=== PATIENT | female | born 1980 ===

== ENCOUNTER 2023-11-03 08:29 | Day surgery (SDC) | payer OTHER ==
[~2023-11-03 08:29] MED LIST: CIPRO500 MG PO; ULTRACET PO; [UNRECOGNIZED DRUG - OTHER] PO
[2023-11-03] MEDS ORDERED: CEFAZOLIN SODIUM 1,000 MG VIAL ONE (11:07)
[2023-11-03] MEDS ORDERED: POVIDONE-IODINE 118 ML BOTT TOP ONE ×2 (11:51→13:45)
[2023-11-03] MEDS ORDERED: CEFAZOLIN SODIUM 1,000 MG VIAL IV ONE (13:45)
[2023-11-03] MEDS ORDERED: DOXYCYCLINE MO100 MG PO (15:28)
== END 2023-11-03 18:10 | disposition home or self-care (01) ==
LOC: CIR.AMB 08:29
PROVIDERS: ATTEND Obstetrics & Gynecology
DX: N84.0 Polyp of corpus uteri (principal); D25.0 Submucous leiomyoma of uterus; N92.0 Excessive and frequent menstruation with regular cycle; Z88.6 Allergy status to analgesic agent; J45.909 Unspecified asthma, uncomplicated; D64.9 Anemia, unspecified